=== PATIENT | female | born 1970 | race Caucasian/White ===

== ENCOUNTER → 2016-06-02 | Outpatient (CLI) | payer OTHER ==
[~2016-06-02] MED LIST: ASPIRIN81 M1 PO; BUPROPION HYDR150 MG PO; DIAZEPAM10 MG PO; GILDESS FE 1.5/1 TAB PO; GLIPIZIDE5 MG PO; IRON TABLETS325 MG PO; JANUVIA100 MG PO; LASIX20 MG PO; LISINOPRIL30 MG PO; METFORMIN1000 MG PO; OMEPRAZOLE40 MG PO; PAXIL10 MG PO; SIMVASTATIN20 MG PO; TOPROL XL100 MG PO
== END | disposition home or self-care (01) ==
LOC: MAMMO 16:40
DX: Z12.31 Encounter for screening mammogram for malignant neoplasm of breast (principal)

== ENCOUNTER → 2018-12-01 | Outpatient (CLI) | payer OTHER | END | disposition home or self-care (01) | LOC: CARD 12:50 | DX: I51.7 Cardiomegaly (principal); Z95.810 Presence of automatic (implantable) cardiac defibrillator ==

== ENCOUNTER → 2019-11-03 | Outpatient (CLI) | payer OTHER ==
[~2019-11-03] MED LIST changes: +ADMELOG SO100 UNIT/1 SQ; +ALDACTONE25 M1 PO; +BASAG SOL SQ; +COREG25 MG PO; +CYCLOBENZAPRINE10 MG PO; +LISINOPRIL10 M1 PO; +LISINOPRIL20 MG PO; -LISINOPRIL30 MG PO; +METFORMIN HCL1000 M1 PO; -METFORMIN1000 MG PO; -PAXIL10 MG PO; +PAXIL40 M1 PO; +STEGLATRO15 MG PO; +TRULICITY1.5 MG/0.5 SC
== END | disposition home or self-care (01) ==
LOC: COVID19 00:08
PROVIDERS: ATTEND Internal Medicine Gastroenterology
DX: Z20.828 Contact with and (suspected) exposure to other viral communicable diseases (principal)

== ENCOUNTER → 2022-06-17 | Outpatient (CLI) | payer OTHER | END | disposition home or self-care (01) | LOC: CT 13:00 → LAB 13:17 → CT 13:17 | PROVIDERS: ATTEND Surgery | DX: Z01.818 Encounter for other preprocedural examination (principal); Z12.11 Encounter for screening for malignant neoplasm of colon; K76.0 Fatty (change of) liver, not elsewhere classified; N20.0 Calculus of kidney ==

== ENCOUNTER → 2022-07-02 | Day surgery (SDC) | payer OTHER ==
[~2022-07-02] VITALS: Ht 165.1 cm; Wt 86.2 kg
[2022-07-02 09:10] VITALS: BP 136/81
[2022-07-02 09:48] VITALS: BP 102/60
[2022-07-02 10:03] VITALS: BP 115/71
[2022-07-02 10:16] VITALS: BP 119/71
== END | disposition home or self-care (01) ==
LOC: SDC 06-29 14:00
PROVIDERS: ATTEND Surgery
DX: Z12.11 Encounter for screening for malignant neoplasm of colon (principal); K62.1 Rectal polyp; D12.3 Benign neoplasm of transverse colon; K57.30 Diverticulosis of large intestine without perforation or abscess without bleeding; I10 Essential (primary) hypertension; E11.9 Type 2 diabetes mellitus without complications; K42.9 Umbilical hernia without obstruction or gangrene; M62.08 Separation of muscle (nontraumatic), other site; K21.9 Gastro-esophageal reflux disease without esophagitis; F41.9 Anxiety disorder, unspecified; F32.A Depression, unspecified; F43.10 Post-traumatic stress disorder, unspecified; Z95.0 Presence of cardiac pacemaker; Z87.891 Personal history of nicotine dependence; Z79.899 Other long term (current) drug therapy

== ENCOUNTER 2022-12-22 07:51 | Emergency (ER) | payer OTHER ==
[~2022-12-22] VITALS: Ht 165.1 cm; Wt 81.6 kg
[2022-12-22 09:13] LABS: BASO # 0.1 10*3/uL (0.0-0.1); BASO % 0.7 % (0.0-1.0); EOS # 0.3 10*3/uL (0.0-0.4); LYMPH # 2.5 10*3/uL (1.3-4.4); LYMPH % 27.3 % (27.0-41.0); MEAN CELL VOLUME 93.7 fl (81.0-99.0); MEAN PLATELET VOLUME 9.3 fl (9.6-12.3); MONO # 0.9 10*3/uL (0.1-1.0); MONO % 10.1 % (3.0-9.0); NEUT # 5.3 10*3/uL (2.3-7.9); NEUT % 58.6 % (47.0-73.0); PLATELET COUNT AUTOMATED 220 10*3/uL (130-400); RED BLOOD COUNT 4.27 10*6/uL (4.10-5.10); RED CELL DISTRI WIDTH 13.8 % (0-14.5); WHITE BLOOD COUNT 9.1 10*3/uL (4.8-10.8)
[2022-12-22 09:26] LABS: ACT PARTIAL THROMBO TIME 29.4 SECONDS (20.0-32.1); INTERNATIONAL NORM RATIO 1.1 (2.0-3.5)
[2022-12-22 09:34] LABS: ALKALINE PHOSPHATASE 99 U/L (46-116); BUN 9 mg/dl (9-23); CHLORIDE 103 mmol/L (98-107); LIPASE 64 U/L (12-53); POTASSIUM 4.5 mmol/L (3.4-5.1); SGPT/ALT 12 U/L (10-49)
[2022-12-22] MEDS ORDERED: PERCOCET 5-3251 EACH PO (13:05)
[2022-12-22] MEDS ORDERED: PREDNISONE50 MG PO (13:05)
[2022-12-22] MEDS ORDERED: CYCLOBENZAPRINE10 MG PO (13:05)
== END 2022-12-22 13:11 | disposition home or self-care (01) ==
LOC: ED 07:51
PROVIDERS: Emergency Medicine
DX: M54.42 Lumbago with sciatica, left side (principal); M79.605 Pain in left leg; I10 Essential (primary) hypertension; E11.9 Type 2 diabetes mellitus without complications; F32.A Depression, unspecified; K21.9 Gastro-esophageal reflux disease without esophagitis; F41.9 Anxiety disorder, unspecified; Z88.2 Allergy status to sulfonamides; Z98.890 Other specified postprocedural states

== ENCOUNTER 2023-03-28 09:01 | Emergency (ER) | payer OTHER ==
[~2023-03-28] VITALS: Ht 165.1 cm; Wt 86.2 kg
[~2023-03-28 09:01] MED LIST changes: +PERCOCET 5-3251 EACH PO; +PREDNISONE50 MG PO
[2023-03-28] MEDS ORDERED: TRAMADOL HCL50 MG PO (09:31)
[2023-03-28] MEDS ORDERED: METHOCARBAMOL500 M1 PO (09:31)
[2023-03-28] MEDS ORDERED: HYDROCODONE-AC1 EAC1 PO (10:04)
== END 2023-03-28 09:58 | disposition home or self-care (01) ==
LOC: ED 09:01
DX: M54.41 Lumbago with sciatica, right side (principal); M79.604 Pain in right leg; F32.A Depression, unspecified; F41.9 Anxiety disorder, unspecified; I10 Essential (primary) hypertension; E11.9 Type 2 diabetes mellitus without complications; K21.9 Gastro-esophageal reflux disease without esophagitis; Z88.2 Allergy status to sulfonamides; Z98.890 Other specified postprocedural states

== ENCOUNTER 2023-07-12 12:31 | Emergency (ER) | payer OTHER ==
[~2023-07-12] VITALS: Ht 165.1 cm; Wt 86.2 kg
[~2023-07-12 12:31] MED LIST changes: +HYDROCODONE-AC1 EAC1 PO; +METHOCARBAMOL500 M1 PO; +TRAMADOL HCL50 MG PO
[2023-07-12] MEDS ORDERED: PREGABALIN200 MG PO (12:58)
[2023-07-12] MEDS ORDERED: NYSTATIN CREAM15 GM T (13:35)
== END 2023-07-12 13:46 | disposition home or self-care (01) ==
LOC: ED 12:31
DX: B37.9 Candidiasis, unspecified (principal); I10 Essential (primary) hypertension; E11.9 Type 2 diabetes mellitus without complications; F32.A Depression, unspecified; K21.9 Gastro-esophageal reflux disease without esophagitis; F41.9 Anxiety disorder, unspecified; Z88.2 Allergy status to sulfonamides; Z98.890 Other specified postprocedural states

== ENCOUNTER → 2024-06-26 | Outpatient (CLI) | payer OTHER ==
[~2024-06-26] MED LIST changes: +NYSTATIN CREAM15 GM T; +PREGABALIN200 MG PO
== END | disposition home or self-care (01) ==
LOC: US 13:00
PROVIDERS: ATTEND Internal Medicine
DX: Z12.31 Encounter for screening mammogram for malignant neoplasm of breast (principal)

== ENCOUNTER 2024-10-19 11:18 | Emergency (ER) | payer OTHER ==
[~2024-10-19] VITALS: Ht 165.1 cm; Wt 86.2 kg
[2024-10-19] MEDS ORDERED: FAMOTIDINE 50 ML IV ONE (11:30)
[2024-10-19] MEDS ORDERED: SODIUM CHLORIDE 0.9% 1,000 ML IV ONE (11:30)
[2024-10-19] MEDS ORDERED: Ondansetron Hydrochloride 4 MG/2 ML VIAL IV ONE (11:30)
[2024-10-19] MEDS ORDERED: Metoclopramide Hydrochloride 10 MG/2 ML VIAL IV ONE (11:35)
[2024-10-19] MEDS ORDERED: diphenhydrAMINE hydrochloride 50 MG/ML VIAL IV ONE (11:35)
[2024-10-19] MEDS ORDERED: DIAZEPAM5 MG PO (11:52)
[2024-10-19] MEDS ORDERED: BUPROPION HYDR150 M3 PO (11:53)
[2024-10-19] MEDS ORDERED: ENTRESTO 24 MG1 EACH PO (11:55)
[2024-10-19] MEDS ORDERED: CYCLOBENZAPRINE10 MG PO (11:56)
[2024-10-19] MEDS ORDERED: CARVEDILOL25 MG PO (11:59)
[2024-10-19] MEDS ORDERED: TOUJEO MAX300 UNIT/1 SQ (12:00)
[2024-10-19] MEDS ORDERED: MOUNJARO5 MG/0.51 SQ (12:04)
[2024-10-19 12:13] LABS: BASO # 0.0 10*3/uL (0.0-0.1); BASO % 0.6 % (0.0-1.0); EOS # 0.2 10*3/uL (0.0-0.4); EOS % 2.5 % (1.0-4.0); MEAN CELL VOLUME 89.9 fl (81.0-99.0); MEAN CORPUSCULAR HGB 29.2 pg (27.0-31.0); MEAN PLATELET VOLUME 9.7 fl (9.6-12.3); MONO # 0.8 10*3/uL (0.1-1.0); MONO % 10.7 % (3.0-9.0); NEUT # 5.0 10*3/uL (2.3-7.9); NEUT % 68.8 % (47.0-73.0); NUCLEATED RED BLOOD CELL 0.0 % (0.0-0.0); NUCLEATED RED BLOOD CELL 0.0 10*3/uL (0.0-0.0); PLATELET COUNT AUTOMATED 142 10*3/uL (130-400); RED CELL DISTRI WIDTH 14.9 % (0-14.5)
[2024-10-19 12:36] LABS: BUN 13 mg/dl (9-23); SGPT/ALT 10 U/L (5-49)
== END 2024-10-19 13:17 | disposition home or self-care (01) ==
LOC: ED 11:18
PROVIDERS: Emergency Medicine
DX: R51.9 Headache, unspecified (principal); R10.13 Epigastric pain; I10 Essential (primary) hypertension; E11.9 Type 2 diabetes mellitus without complications; R11.2 Nausea with vomiting, unspecified; Z88.2 Allergy status to sulfonamides